=== PATIENT | female | born 1945 | race Caucasian/White ===

== ENCOUNTER 2018-09-25 23:15 | Inpatient (IN) | payer OTHER ==
[~2018-09-25] VITALS: Ht 149.9 cm; Wt 58.1 kg
[2018-09-25 23:22] VITALS: Ht 149.9 cm; Wt 58.1 kg
[2018-09-26] VITALS (7 sets, daily range): BP systolic 75–112; BP diastolic 43–62
[2018-09-26 00:20] LABS: BASOPHIL % 0.4 % (0-2); PLATELET COUNT 267 x10^3mcL (130-400)
[2018-09-26 00:37] LABS: CALCIUM 8.5 mg/dL (8.5-10.1); CARBON DIOXIDE 24.3 mmol/L (21-32); CHLORIDE SERUM 103 mmol/L (98-107); CREATININE SERUM 1.2 mg/dL (0.6-1.0); GLUCOSE SERUM 201 mg/dL (74-106); POTASSIUM SERUM 3.4 mmol/L (3.5-5.1); SODIUM SERUM 139 mmol/L (136-145)
[2018-09-26 00:41] LABS: ALBUMIN 3.4 g/dL (3.4-5.0); ALKALINE PHOSPHATASE 90 U/L (46-116); ALT/SGPT 22 U/L (14-59); AST/SGOT 25 U/L (15-37); BILIRUBIN TOTAL 0.7 mg/dL (0.20-1.00); TOTAL PROTEIN, SERUM 7.3 g/dL (6.4-8.2)
[2018-09-26] MEDS ORDERED: POTASSIUM CHLO10 MEQ PO (00:49)
[2018-09-26] MEDS ORDERED: FUROSEMIDE20 MG PO (00:49)
[2018-09-26] MEDS ORDERED: ALBUTEROL0.63 MG/3 (00:50)
[2018-09-26 01:44] LABS: microscopic required? YES; urine erythrocyte 1+ (NEGATIVE)
[2018-09-26 06:29] LABS: PLATELET COUNT 219 x10^3mcL (130-400); RED CELL DISTRIBUTION WIDTH 13.7 % (11.5-14.5)
[2018-09-26 06:38] LABS: BASOPHIL % 0 % (0-2)
[2018-09-26 07:03] LABS: ALKALINE PHOSPHATASE 68 U/L (46-116); ALT/SGPT 17 U/L (14-59); AST/SGOT 23 U/L (15-37); BILIRUBIN TOTAL 0.65 mg/dL (0.20-1.00); CALCIUM 8.1 mg/dL (8.5-10.1); CARBON DIOXIDE 26.9 mmol/L (21-32); CHLORIDE SERUM 105 mmol/L (98-107); CREATININE SERUM 1.1 mg/dL (0.6-1.0); GLUCOSE SERUM 201 mg/dL (74-106); MAGNESIUM 1.6 mg/dL (1.8-2.4); POTASSIUM SERUM 3.6 mmol/L (3.5-5.1); SODIUM SERUM 140 mmol/L (136-145)
[2018-09-26 07:10] LABS: ALBUMIN 2.7 g/dL (3.4-5.0); TOTAL PROTEIN, SERUM 6.1 g/dL (6.4-8.2)
[2018-09-27 05:32] VITALS: BP 95/56
[2018-09-27 07:23] LABS: BASOPHIL % 0.3 % (0-2); PLATELET COUNT 210 x10^3mcL (130-400); RED CELL DISTRIBUTION WIDTH 13.6 % (11.5-14.5)
[2018-09-27 07:30] LABS: CALCIUM 8.8 mg/dL (8.5-10.1); CARBON DIOXIDE 29.1 mmol/L (21-32); CHLORIDE SERUM 101 mmol/L (98-107); CREATININE SERUM 1.1 mg/dL (0.6-1.0); GLUCOSE SERUM 113 mg/dL (74-106); MAGNESIUM 2.7 mg/dL (1.8-2.4); POTASSIUM SERUM 3.2 mmol/L (3.5-5.1); SODIUM SERUM 139 mmol/L (136-145)
[2018-09-27 08:50] VITALS: BP 63/39
[2018-09-27 13:07] VITALS: BP 98/56
[2018-09-27 17:03] VITALS: BP 122/75
[2018-09-27 20:51] VITALS: BP 117/67
[2018-09-28 05:24] VITALS: BP 101/59
[2018-09-28 08:50] VITALS: BP 94/55
[2018-09-28 12:10] VITALS: BP 102/59
[2018-09-28 17:00] VITALS: BP 109/43
[2018-09-28 21:37] VITALS: BP 98/63
[2018-09-29 06:42] VITALS: BP 104/69
[2018-09-29 06:42] LABS: BASOPHIL % 0.9 % (0-2); PLATELET COUNT 265 x10^3mcL (130-400); RED CELL DISTRIBUTION WIDTH 13.5 % (11.5-14.5)
[2018-09-29 07:07] LABS: CALCIUM 9.6 mg/dL (8.5-10.1); CARBON DIOXIDE 27.8 mmol/L (21-32); CHLORIDE SERUM 101 mmol/L (98-107); GLUCOSE SERUM 134 mg/dL (74-106); MAGNESIUM 2.2 mg/dL (1.8-2.4); POTASSIUM SERUM 4.3 mmol/L (3.5-5.1); SODIUM SERUM 139 mmol/L (136-145)
[2018-09-29 09:20] VITALS: BP 116/62
[2018-09-29 12:38] VITALS: BP 86/52
[2018-09-29 17:01] VITALS: BP 115/63
[2018-09-29 21:15] VITALS: BP 123/69
[2018-09-30 05:40] VITALS: BP 108/69
[2018-09-30 09:56] VITALS: BP 133/64
[2018-09-30 12:52] VITALS: BP 106/65
[2018-09-30] MEDS ORDERED: LASIX40 MG PO (14:59)
[2018-09-30] MEDS ORDERED: GLU500 PO (14:59)
[2018-09-30] MEDS ORDERED: AMOXICILLIN/CLA1 TA6 PO (14:59)
[2018-09-30 16:57] VITALS: BP 100/64; BP 106/65
[2018-09-30 17:21] VITALS: BP 125/63
[2018-09-30 20:56] VITALS: BP 118/63
[2018-10-01 05:36] VITALS: BP 109/60
[2018-10-01 09:44] VITALS: BP 107/60
[2018-10-01 13:01] VITALS: BP 100/64
[2018-10-01 16:45] VITALS: BP 102/59
== END 2018-10-01 18:45 | disposition home health service (06) | DRG 871 ==
LOC: ED 23:15 → DU 09-26 02:08
PROVIDERS: Emergency Medicine; Internal Medicine Pulmonary Disease; ADMIT Internal Medicine Pulmonary Disease
DX: A41.9 Sepsis, unspecified organism (principal); J18.1 Lobar pneumonia, unspecified organism; J96.01 Acute respiratory failure with hypoxia; I50.43 Acute on chronic combined systolic (congestive) and diastolic (congestive) heart failure; N39.0 Urinary tract infection, site not specified; E11.9 Type 2 diabetes mellitus without complications; E87.6 Hypokalemia; E83.42 Hypomagnesemia; Z68.25 Body mass index [BMI] 25.0-25.9, adult; Z99.81 Dependence on supplemental oxygen
CPT/HCPCS: 82962; 83880; 94150; J0456; J0696; J1644; J1940; J2405; J3475; J7030; J7040; J7613